=== PATIENT | male | born 1935 | race Hispanic/Latino ===

== ENCOUNTER 2019-07-24 06:29 | Day surgery (SDC) | payer OTHER ==
[2019-07-19 15:17] VITALS: BP 148/68
[2019-07-19 15:26] LABS: CREATININE 0.8 mg/dL (0.5-1.5); POTASSIUM 4.3 mmol/L (3.5-5.1)
[~2019-07-24] VITALS: Ht 177.8 cm; Wt 92.5 kg
[2019-07-24] VITALS (21 sets, daily range): BP systolic 141–187; BP diastolic 70–94
[~2019-07-24 06:29] MED LIST: LIDOCAINE 1%-EPI 1:100,000 20 ML VIAL IJ ONE; METF-444 PO; METO-391 PO; RAMI2.5C16 PO; SIMV-46 PO; TERA10CA4 PO
[2019-07-24] MEDS ORDERED: SODIUM CHLORIDE 0.9% 1000ML 1,000 ML IV ONE (06:39)
[2019-07-24] MEDS ORDERED: SUCCINYLCHOLINE 200MG/10ML SYR ONE (06:47)
[2019-07-24] MEDS ORDERED: LIDOCAINE PF 2% 5ML ABBOJECT ONE (06:47)
[2019-07-24] MEDS ORDERED: PROPOFOL 10 MG/ML 20ML VIAL IV ONE (06:48)
[2019-07-24] MEDS ORDERED: FENTANYL CITRATE PF 50 MCG/1 ML 2ML VIAL ONE (06:48)
[2019-07-24] MEDS ORDERED: ROCURONIUM 10MG/1ML SYR 10 MG/ML ML ONE (06:48)
[2019-07-24] MEDS ORDERED: DEXAMETHASONE SOD PHOSPHATE 10MG/ML 1ML VIAL ONE (07:24)
[2019-07-24] MEDS ORDERED: CEFAZOLIN SODIUM 1 GM VIAL ONE (07:24)
[2019-07-24] MEDS ORDERED: EPHEDRINE SULFATE 50 MG/ML AMPULE ONE (07:37)
[2019-07-24] MEDS ORDERED: BACITRACIN 28.4 GM OINT TP ONE (08:48)
[2019-07-24] MEDS ORDERED: ACETAMINOPHEN-CODEINE 300/30MG TAB ONE (10:21)
[2019-07-24] MEDS ORDERED: HYDRALAZINE HCL 20 MG/ML VIAL IM ONE (10:30)
[2019-07-24] MEDS ORDERED: HYDRALAZINE HCL 20 MG/ML VIAL ONE (10:31)
[2019-07-24] MEDS ORDERED: ACETAMINOPHEN-CODEINE 300/30MG TAB PO PRN ×2 (11:00)
== END 2019-07-24 11:16 | disposition home or self-care (01) ==
LOC: DAH 06:29
PROVIDERS: ATTEND Otolaryngology Plastic Surgery within the Head & Neck
DX: C00.1 Malignant neoplasm of external lower lip (principal); C44.229 Squamous cell carcinoma of skin of left ear and external auricular canal; E11.9 Type 2 diabetes mellitus without complications; I10 Essential (primary) hypertension; Z79.899 Other long term (current) drug therapy; Z90.49 Acquired absence of other specified parts of digestive tract; Z82.49 Family history of ischemic heart disease and other diseases of the circulatory system
CPT/HCPCS: 14061; 15260; 15261; 36415; 80048; 82948 ×2; A4215; A4221; A4222; A4223; A4452; A4606; A4663; A4930; A6223; A6260; J0330; J0360; J0690; J1100; J2001; J2704; J3010; J3490 ×2; J7030 ×2

== ENCOUNTER 2022-06-06 13:46 | Emergency (ER) | payer OTHER ==
[~2022-06-06] VITALS: Ht 177.8 cm; Wt 90.7 kg
[~2022-06-06 13:46] MED LIST changes: -LIDOCAINE 1%-EPI 1:100,000 20 ML VIAL IJ ONE; -RAMI2.5C16 PO; +RAMI2.5C55 PO
[2022-06-06] MEDS ORDERED: ONDANSETRON 4MG INJ IVP ONE (15:00)
[2022-06-06] MEDS ORDERED: MORPHINE 2 MG SYG IVP ONE (15:00)
[2022-06-06 15:16] LABS: BASOPHILS % (AUTO) 0.3 % (0.0-5.0); EOSINOPHILS % (AUTO) 1.5 % (0.0-8.0); HEMATOCRIT 37.4 % (42-54); LYMPHOCYTES % (AUTO) 10.4 % (21.0-51.0); MEAN CORPUSCULAR HEMOGLOBIN 31.8 pg (27.0-33.0); MEAN CORPUSCULAR HGB CONC 34.2 g/dL (32.0-36.0); MONOCYTES % (AUTO) 5.8 % (3.0-13.0); NEUTROPHILS % (AUTO) 81.1 % (40.0-77.0); PLATELET COUNT (AUTO) 246 K/uL (130-400); RED BLOOD CELL COUNT(AUTO) 4.02 MIL/uL (4.50-6.20); RED CELL DISTRIBUTION WIDTH 12.7 % (11.0-15.5); WHITE BLOOD COUNT (AUTO) 11.7 K/uL (4.8-10.8)
[2022-06-06 15:23] LABS: CREATININE 1.1 mg/dL (0.5-1.5); POTASSIUM 4.3 mmol/L (3.5-5.1)
[2022-06-06 15:33] LABS: ALBUMIN 3.6 g/dL (3.5-5.0); TOTAL PROTEIN, SERUM 6.7 g/dL (6.0-8.3)
[2022-06-06 18:50] VITALS: BP 132/74
== END 2022-06-06 19:05 | disposition home or self-care (01) ==
LOC: EDH 13:46
DX: S42.341A Displaced spiral fracture of shaft of humerus, right arm, initial encounter for closed fracture (principal); E11.9 Type 2 diabetes mellitus without complications; E78.00 Pure hypercholesterolemia, unspecified; I10 Essential (primary) hypertension; Z79.84 Long term (current) use of oral hypoglycemic drugs; Z79.899 Other long term (current) drug therapy; W01.0XXA Fall on same level from slipping, tripping and stumbling without subsequent striking against object, initial encounter; Y93.89 Activity, other specified; Y92.098 Other place in other non-institutional residence as the place of occurrence of the external cause; Y99.8 Other external cause status
CPT/HCPCS: 99285; 70450; 96374; 29105; 71045; 96375; 84484; 80053; 85025; 36415; 73080; 73090; 73130; 73060; 73030; 72125; 93005; J2405